=== PATIENT | male | born 1960 | race Caucasian/White ===

== ENCOUNTER 2022-04-20 07:19 | Emergency (ER) | payer OTHER, SELFPAY ==
[2022-04-20 07:20] VITALS: BP 155/90; PULSE 84; RESP 20; TEMP 36.3; O2SAT 94
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
[2022-04-20 07:47] VITALS: BP 135/83; PULSE 87; RESP 18; O2SAT 96
== END 2022-04-20 08:01 | disposition home or self-care (01) ==
PROVIDERS: Emergency Provider Emergency Medicine; PCP Internal Medicine
DX: S00.91XA Abrasion of unspecified part of head, initial encounter (principal); V89.2XXA Person injured in unspecified motor-vehicle accident, traffic, initial encounter
CPT/HCPCS: 99283